=== PATIENT | male | born 1965 | race Caucasian/White ===

== ENCOUNTER 2021-11-20 11:31 | Inpatient (IN) | payer OTHER ==
[2021-11-20 12:34] VITALS: BMI 31.5
[2021-11-20] MEDS ORDERED: MAGNESIUM HYDROX 2400MG/30ML ORAL SUSPENSION 30 ML CUP PO PRN (13:12)
[2021-11-20] MEDS ORDERED: ACETAMINOPHEN 325 MG TABLET (FP) PO PRN ×2 (13:12)
[2021-11-20] MEDS ORDERED: IBUPROFEN 600 MG TABLET (FP) PO PRN (13:12)
[2021-11-20] MEDS ORDERED: ONDANSETRON *ODT* 4 MG TABLET SL PRN (13:12)
[2021-11-20] MEDS ORDERED: NALOXONE HCL (KLOXXADO) 8 MG SPRAY NS PRN (13:12)
[2021-11-20] MEDS ORDERED: DICYCLOMINE HCL 10 MG CAPSULE PO PRN (13:12)
[2021-11-20] MEDS ORDERED: NICOTINE 10 MG CARTRIDGE (INHALER) IH PRN (13:12)
[2021-11-20] MEDS ORDERED: MAG HYDROX/AL HYDROX/SIMETH 30 ML UNIT-DOSE CUP PO PRN (13:12)
[2021-11-20] MEDS ORDERED: BUPRENORPHINE HCL 150 MCG, BUPRENORPHINE HCL 75 MCG BC PRN (13:12)
[2021-11-20] MEDS ORDERED: MAGNESIUM CITRATE 300 ML BOTTLE PO PRN (13:12)
[2021-11-20] MEDS ORDERED: BISMUTH SUBSALICYLATE 524 MG/30 ML PO PRN (13:12)
[2021-11-20] MEDS ORDERED: BENZOCAINE/MENTHOL (CHLORASEPTIC ) LOZENGE MM PRN (13:12)
[2021-11-20] MEDS ORDERED: LOPERAMIDE HCL 2 MG CAPSULE PO PRN (13:12)
[2021-11-20] MEDS ORDERED: IBUPROFEN 400 MG TABLET (FP) PO PRN (13:12)
[2021-11-20] MEDS ORDERED: NICOTINE POLACRILEX 4 MG GUM BUC PRN (13:12)
[2021-11-20] MEDS ORDERED: BUPRENORPHINE HCL 150 MCG FILM BC ONE ×2 (13:25→17:22)
[2021-11-20] MEDS ORDERED: BUPRENORPHINE HCL 75 MCG FILM BC ONE ×2 (13:25→17:22)
[2021-11-20] MEDS ORDERED: BUPRENORPHINE HCL 150 MCG, BUPRENORPHINE HCL 75 MCG BC ONE ×2 (13:30→18:00)
[2021-11-20] MEDS ORDERED: cloNIDine HCL 0.1 MG TABLET PO ONE (14:00)
[2021-11-20] MEDS: hydrOXYzine PAMOATE 25 MG CAPSULE (FP) PO SCH ×3 (15:42→22:17)
[2021-11-20] MEDS: PRENATAL VITAMINS W/ FOLIC ACID TABLET (FP) PO SCH (15:43)
[2021-11-20] MEDS: INSULIN SLIDING SCALE (NOVOLOG) 1 VIAL SQ SCH ×2 (15:46→18:08)
[2021-11-20] MEDS ORDERED: INSULIN SLIDING SCALE (NOVOLOG) 1 VIAL SQ SCH (16:30)
[2021-11-20 17:02] LABS: HEMATOCRIT 45.5 % (35.4-49); HEMOGLOBIN 15.2 GM/dL (11.7-16.9); MCH 29.6 pg (25.7-33.7); MCHC 33.4 g/dl (32.0-35.9); MEAN CELL VOLUME 88.6 fl (80-96); MEAN PLT VOLUME 8.7 fl (7.5-11.1); PLATELET COUNT 247 10^3/uL (134-434); RBC 5.14 M/mm3 (4.00-5.60); RDW 16.3 % (11.9-15.9); WHITE BLOOD COUNT 15.5 K/mm3 (4.0-10.0)
[2021-11-20 17:10] LABS: CALCIUM 9.5 mg/dL (8.5-10.1)
[2021-11-20 17:11] LABS: ALBUMIN 4.1 g/dl (3.4-5.0); BLOOD UREA NITROGEN 10.3 mg/dL (7-18)
[2021-11-20] MEDS ORDERED: cloNIDine HCL 0.1 MG TABLET PO PRN (17:12)
[2021-11-20 17:15] LABS: BILIRUBIN,TOTAL 0.9 mg/dL (0.2-1)
[2021-11-20 17:16] LABS: TOT PROT 8.2 g/dl (6.4-8.2)
[2021-11-20] MEDS: ATORVASTATIN CA 80 MG TABLET (FP) PO SCH (22:16)
[2021-11-20] MEDS: GABAPENTIN 400 MG CAPSULE PO SCH (22:16)
[2021-11-20] MEDS: THIAMINE HCL 100 MG TABLET (FP) PO SCH (22:17)
[2021-11-20] MEDS: diazePAM 5 MG TABLET PO PRN (22:17)
[2021-11-20] MEDS: MELATONIN 5 MG TABLETS PO SCH (22:17)
[2021-11-21] MEDS ORDERED: BUPRENORPHINE HCL 150 MCG, BUPRENORPHINE HCL 75 MCG BC PRN
[2021-11-21] MEDS: GABAPENTIN 400 MG CAPSULE PO SCH ×3 (06:14→22:31)
[2021-11-21] MEDS: hydrOXYzine PAMOATE 25 MG CAPSULE (FP) PO SCH ×5 (06:14→22:31)
[2021-11-21] MEDS: BUPRENORPHINE HCL 150 MCG, BUPRENORPHINE HCL 75 MCG BC SCH ×2 (06:15→18:01)
[2021-11-21] MEDS ORDERED: BUPRENORPHINE HCL 75 MCG FILM BC ONE ×2 (06:15→17:00)
[2021-11-21] MEDS ORDERED: BUPRENORPHINE HCL 150 MCG FILM BC ONE ×2 (06:15→16:59)
[2021-11-21] MEDS: INSULIN SLIDING SCALE (NOVOLOG) 1 VIAL SQ SCH ×2 (07:39→18:08)
[2021-11-21] MEDS: PANTOPRAZOLE 40 MG TABLET PO SCH (11:03)
[2021-11-21] MEDS: ASPIRIN 81 MG CHEWABLE TABLETS PO SCH (11:03)
[2021-11-21] MEDS: PRENATAL VITAMINS W/ FOLIC ACID TABLET (FP) PO SCH (11:03)
[2021-11-21] MEDS: LISINOPRIL 10 MG TABLET PO SCH (11:03)
[2021-11-21] MEDS: METHOCARBAMOL 500 MG TABLET PO PRN ×2 (11:03→19:50)
[2021-11-21] MEDS: diazePAM 5 MG TABLET PO PRN ×2 (11:04→22:33)
[2021-11-21] MEDS: THIAMINE HCL 100 MG TABLET (FP) PO SCH (22:31)
[2021-11-21] MEDS: ATORVASTATIN CA 80 MG TABLET (FP) PO SCH (22:31)
[2021-11-21] MEDS: MELATONIN 5 MG TABLETS PO SCH (22:31)
[2021-11-22] MEDS: BUPRENORPHINE HCL 450 MCG FILM BC SCH ×2 (05:40→17:54)
[2021-11-22] MEDS: hydrOXYzine PAMOATE 25 MG CAPSULE (FP) PO SCH ×5 (05:41→22:36)
[2021-11-22] MEDS: GABAPENTIN 400 MG CAPSULE PO SCH ×3 (05:41→22:36)
[2021-11-22] MEDS: INSULIN SLIDING SCALE (NOVOLOG) 1 VIAL SQ SCH ×2 (06:41→17:11)
[2021-11-22 10:19] LABS: BASO % 0.6 % (0-2.0); HEMATOCRIT 47.5 % (35.4-49); HEMOGLOBIN 15.8 GM/dL (11.7-16.9); LYMPH % 23.6 % (8-40); MCH 29.4 pg (25.7-33.7); MCHC 33.2 g/dl (32.0-35.9); MEAN CELL VOLUME 88.3 fl (80-96); MONO % 6.6 % (3.8-10.2); NEUT % 68.2 % (42.8-82.8); PLATELET COUNT 251 10^3/uL (134-434); RBC 5.37 M/mm3 (4.00-5.60); RDW 16.2 % (11.9-15.9)
[2021-11-22] MEDS: LISINOPRIL 10 MG TABLET PO SCH (11:02)
[2021-11-22] MEDS: PANTOPRAZOLE 40 MG TABLET PO SCH (11:02)
[2021-11-22] MEDS: ASPIRIN 81 MG CHEWABLE TABLETS PO SCH (11:02)
[2021-11-22] MEDS: PRENATAL VITAMINS W/ FOLIC ACID TABLET (FP) PO SCH (11:03)
[2021-11-22] MEDS: diazePAM 5 MG TABLET PO PRN (11:05)
[2021-11-22] MEDS: THIAMINE HCL 100 MG TABLET (FP) PO SCH (22:36)
[2021-11-22] MEDS: ATORVASTATIN CA 80 MG TABLET (FP) PO SCH (22:36)
[2021-11-22] MEDS: MELATONIN 5 MG TABLETS PO SCH (22:36)
[2021-11-23] MEDS: GABAPENTIN 400 MG CAPSULE PO SCH ×3 (05:39→22:29)
[2021-11-23] MEDS: hydrOXYzine PAMOATE 25 MG CAPSULE (FP) PO SCH ×5 (05:40→22:29)
[2021-11-23] MEDS: BUPRENORPHINE/NALOXONE 4 MG/1 MG FILM PACKET SL SCH ×2 (05:40→17:57)
[2021-11-23] MEDS: INSULIN SLIDING SCALE (NOVOLOG) 1 VIAL SQ SCH ×2 (07:19→17:57)
[2021-11-23] MEDS: METHOCARBAMOL 500 MG TABLET PO PRN ×2 (07:32→23:57)
[2021-11-23] MEDS: LISINOPRIL 10 MG TABLET PO SCH (09:37)
[2021-11-23] MEDS: PANTOPRAZOLE 40 MG TABLET PO SCH (09:38)
[2021-11-23] MEDS: ASPIRIN 81 MG CHEWABLE TABLETS PO SCH (09:38)
[2021-11-23] MEDS: PRENATAL VITAMINS W/ FOLIC ACID TABLET (FP) PO SCH (10:19)
[2021-11-23] MEDS: ATORVASTATIN CA 80 MG TABLET (FP) PO SCH (22:29)
[2021-11-23] MEDS: THIAMINE HCL 100 MG TABLET (FP) PO SCH (22:29)
[2021-11-23] MEDS: MELATONIN 5 MG TABLETS PO SCH (22:30)
[2021-11-24] MEDS: GABAPENTIN 400 MG CAPSULE PO SCH (05:26)
[2021-11-24] MEDS: hydrOXYzine PAMOATE 25 MG CAPSULE (FP) PO SCH ×2 (05:27→09:17)
[2021-11-24] MEDS ORDERED: BUPRENORPHINE/NALOXONE 8 MG/2 MG FILM PACKET SL ONE (06:00)
[2021-11-24] MEDS: INSULIN SLIDING SCALE (NOVOLOG) 1 VIAL SQ SCH (06:40)
[2021-11-24] MEDS ORDERED: INSULIN SLIDING SCALE (NOVOLOG) 1 VIAL SQ ONE (06:57)
[2021-11-24] MEDS: ASPIRIN 81 MG CHEWABLE TABLETS PO SCH (09:15)
[2021-11-24] MEDS: PRENATAL VITAMINS W/ FOLIC ACID TABLET (FP) PO SCH (09:15)
[2021-11-24] MEDS: PANTOPRAZOLE 40 MG TABLET PO SCH (09:16)
[2021-11-24] MEDS: LISINOPRIL 10 MG TABLET PO SCH (09:16)
[2021-11-24 09:22] VITALS: BP 98/63; PULSE 89; TEMP 97.8
== END 2021-11-24 10:20 | disposition home or self-care (01) | DRG 773 ==
LOC: YASAS 11:31 → Y3N 12:57
PROVIDERS: ADMIT Allergy & Immunology; ATTEND Surgery
PROC: HZ2ZZZZ Detoxification Services for Substance Abuse Treatment (ICD-10-PCS; principal; 2021-11-20)
DX: F11.23 Opioid dependence with withdrawal (principal); F17.210 Nicotine dependence, cigarettes, uncomplicated; F41.9 Anxiety disorder, unspecified; D72.829 Elevated white blood cell count, unspecified; E78.2 Mixed hyperlipidemia; I10 Essential (primary) hypertension; K21.9 Gastro-esophageal reflux disease without esophagitis; E11.65 Type 2 diabetes mellitus with hyperglycemia; Z79.84 Long term (current) use of oral hypoglycemic drugs; E66.9 Obesity, unspecified; Z68.31 Body mass index [BMI] 31.0-31.9, adult
CPT/HCPCS: 36415; 80053; 82962; 85025; 85027; 86780; 87811; 93005; 93010; C9803-CS; J0735; U0003; U0005